=== PATIENT | male | born 1940 | race Hispanic/Latino ===

== ENCOUNTER 2017-05-19 03:35 | Emergency (ER) | payer MEDICARE, BC ==
[2017-05-19 03:35] VITALS: PULSE 72; BMI 25.7
[2017-05-19 03:46] VITALS: BP 116/64; PULSE 60; RESP 18; TEMP 97.7; O2SAT 99
[2017-05-19] MEDS ORDERED: Amoxicillin-Clav 875-125 mg Tab PO STA (03:58)
--- NOTE | 2017-05-19 04:06 | ED PDOC ---
Arrival/HPI - General Chief Complaint: Male Genitourinary Time Seen by Provider: 05/19/17 03:43 Historian: Patient (2-3 days) - History of Present Illness Narrative History of Present Illness (Text): 05/19/17 04:03 75 year old male, whose past medical history includes hypertension, colostomy, enlarged prostate, diabetes, open heart surgery and atrial fibrillation, presents to the emergency department complaining of cloudy urine and reoccurring UTI symptoms. Patient states he had a UTI 3 weeks ago and was on Augmentin for 10 days, but once stopped, patient noticed the symptoms again and called Dr. Gertrudis Guerra who refilled his prescription of Augmentin. On the last 2-3 days, patient began seeing symptoms again and decided to come in to the emergency department for evaluation. Patient reports drinking soda today that irritated him. Patient denies any fever, chills, chest pain, shortness of breath, nausea, vomiting, diarrhea, urinary symptoms, back pain, neck pain, headache, dizziness, or any other complaints. PMD: Dr. Gertrudis Guerra. Symptom Onset: Gradual Symptom Course: Unchanged Activities at Onset: Light Context: Home Past Medical History - Provider Review Nursing Documentation Reviewed: Yes - Cardiac Hx Pacemaker: No - Pulmonary Hx Asthma: Yes - Neurological Hx Neurological Disorder: No - HEENT Hx HEENT Disorder: (detached retina had sx) Hx Cataracts: Yes (b/l sx) - Renal Hx Renal Disorder: No - Endocrine/Metabolic Hx Endocrine Disorders: No Hx Diabetes Mellitus Type 1: Yes - Hematological/Oncological Hx Blood Transfusions: Yes (HUMAN PLTS 2008- 3 UNITS PRBC 02/08) Hx Blood Transfusion Reaction: Yes (TO HUMAN PLTS - ANAPHYLAXIS) - Integumentary Hx Dermatological Disorder: No Other/Comment: generalized multiple skin discolorations face,back, chest, legs , arms, multiple skin cancer removal sites arms, thighs, legs, moles removed from below b/l ears, some basal cell some squamous cell pt not sure which pt sees silk printer dr varner for all skin issues - Musculoskeletal/Rheumatological Hx Musculoskeletal Disorders: No - Gastrointestinal Hx Gastrointestinal Disorders: No - Genitourinary/Gynecological Hx Genitourinary Disorders: No Hx Prostate Problems: Yes (enlarged) - Psychiatric Hx Emotional Abuse: No Hx Physical Abuse: No Hx Substance Use: No - Surgical History Hx Open Heart Surgery: Yes (7 years ago) Other/Comment: right side of neck/skin cancer - Anesthesia Hx Anesthesia Reactions: No - Suicidal Assessment Feels Threatened In Home Enviroment: No Family/Social History - Physician Review Nursing Documentation Reviewed: Yes Family/Social History: No Known Family HX Smoking Status: Never Smoked Hx Alcohol Use: Yes (OCCASIONAL WINE) Hx Substance Use: No Allergies/Home Meds Allergies/Adverse Reactions: Allergies HUMAN PLATELETS Adverse Reaction (Severe, Uncoded 03/01/16 09:25) ANAPHYLAXIS Home Medications: Home Meds Medication Instructions Recorded Confirmed Amlodipine Besylate [Norvasc] 10 mg PO QAM 12/27/15 05/19/17 Digoxin [Lanoxin] 0.125 mg PO F 12/27/15 05/19/17 Dutasteride [Avodart] 0.5 mg PO QAM 12/27/15 05/19/17 Enalapril Maleate [Vasotec] 20 mg PO BID 12/27/15 05/19/17 Ezetimibe [Zetia] 10 mg PO QAM 12/27/15 05/19/17 Insulin Aspart, Recombinant 100 unit SQ ACBD 12/27/15 05/19/17 [Novolog] Insulin Detemir [Levemir] 10 unit SC [facility] 12/27/15 05/19/17 [id number] Ethyl Esters 1 GM 4 gm PO QAM 12/27/15 05/19/17 [Lovaza] Rosuvastatin Calcium [Crestor] 10 mg PO QPM 12/27/15 05/19/17 Tamsulosin [Flomax] 0.4 mg PO BID 12/27/15 05/19/17 Valsartan/Hydrochlorothiazide 1 each PO QAM 12/27/15 05/19/17 [Valsartan-Hctz 320-25 mg Tab] Warfarin [Coumadin] 4 mg PO DAILY 12/27/15 05/19/17 hydrALAZINE [Apresoline] 50 mg PO BID 12/27/15 05/19/17 Metoprolol Tartrate [Lopressor] 25 mg PO QAM 03/01/16 05/19/17 Omeprazole [Prilosec] 40 mg PO DAILY 03/02/16 05/19/17 Review of Systems - Review of Systems Constitutional: absent: Fevers, Other (Chills) Respiratory: absent: SOB Cardiovascular: absent: Chest Pain Gastrointestinal: absent: Abdominal Pain Genitourinary Male: Urinary Output Changes (Urine cloudy ), Other (Cloudy urine) . absent: Dysuria, Frequency, Hematuria Musculoskeletal: absent: Back Pain, Neck Pain Neurological: absent: Headache, Dizziness Physical Exam Vital Signs Temp Pulse Resp BP Pulse Ox 05/19/17 03:42 97.7 F 60 18 116/64 99 Temperature: Afebrile Blood Pressure: Normal Pulse: Regular Respiratory Rate: Normal Appearance: Positive for: Well-Appearing, Non-Toxic, Comfortable Pain Distress: None Mental Status: Positive for: Alert and Oriented X 3 - Systems Exam Head: Present: Atraumatic, Normocephalic Pupils: Present: PERRL Extroacular Muscles: Present: EOMI Conjunctiva: Present: Normal Mouth: Present: Moist Mucous Membranes Neck: Present: Normal Range of Motion Respiratory/Chest: Present: Clear to Auscultation, Good Air Exchange. No: Respiratory Distress, Accessory Muscle Use Cardiovascular: Present: Regular Rate and Rhythm, Normal S1, S2. No: Murmurs Abdomen: Present: Normal Bowel Sounds, Other (colostomy bag). No: Tenderness, Distention, Peritoneal Signs Back: Present: Normal Inspection Upper Extremity: Present: Normal Inspection. No: Cyanosis, Edema Lower Extremity: Present: Normal Inspection. No: Edema Neurological: Present: GCS=15, CN II-XII Intact, Speech Normal Skin: Present: Warm, Dry, Normal Color. No: Rashes Psychiatric: Present: Alert, Oriented x 3, Normal Insight, Normal Concentration Medical Decision Making ED Course and Treatment: 05/19/17 04:03 Impression: 76 year old male presents complaining of cloudy urine and reoccurring UTI symptoms. Plan: -- Augmentin -- Urine Culture -- Urinalysis -- Urinalysis with Micro stat -- Reassess and disposition Progress Notes: - Lab Interpretations Lab Results: Lab Results 05/19/17 04:00: Urine Color Yellow, Urine Appearance Turbid, Urine pH 6.0, Ur Specific [place] 1.025, Urine Protein 100 H, Urine Glucose (UA) Negative, Urine Ketones Negative, Urine Blood Moderate H, Urine Nitrate Negative, Urine Bilirubin Negative, Urine Urobilinogen 0.2, Ur Leukocyte Esterase Large H, Urine RBC 2 - 5, Urine WBC Tntc, Ur Epithelial Cells 0 - 2, Urine Bacteria Many I have reviewed the lab results: Yes - Medication Orders Current Medication Orders: Discontinued Medications Amoxicillin/Clavulanate Potassium (Augmentin 875 Mg-125 Mg Tab) 1 tab PO STAT STA PRN Reason: Protocol Stop: 05/19/17 03:59 Last Admin: 05/19/17 04:07 Dose: 1 tab - Scribe Statement The provider has reviewed the documentation as recorded by the Leliaibe Amada Thompson All medical record entries made by the Leliaibe were at my direction and personally dictated by me. I have reviewed the chart and agree that the record accurately reflects my personal performance of the history, physical exam, medical decision making, and the department course for this patient. I have also personally directed, reviewed, and agree with the discharge instructions and disposition. Disposition/Present on Arrival - Present on Arrival Any Indicators Present on Arrival: No History of DVT/PE: No History of Uncontrolled Diabetes: No Urinary Catheter: No History of Decub. Ulcer: No History Surgical Site Infection Following: None - Disposition Have Diagnosis and Disposition been Completed?: Yes Diagnosis: UTI (urinary tract infection) Disposition: HOME/ ROUTINE Disposition Time: 03:55 Condition: GOOD Discharge Instructions (ExitCare): Urinary Tract Infection in Men (ED) Additional Instructions: Thank you for letting us take care of you today. Your provider was Dr. Corey. You were treated for a UTI. The emergency medical care you received today was directed at your acute symptoms. If you were prescribed any medication , please fill it and take as directed. It may take several days for your symptoms to resolve. Return to the Emergency Department if your symptoms worsen , do not improve, or if you have any other problems. Please contact your doctor or call one of the physicians/clinics you have been referred to that are listed on the Patient Visit Information form that is included in your discharge packet. Bring any paperwork you were given at discharge with you along with any medications you are taking to your follow up visit. Our treatment cannot replace ongoing medical care by a primary care provider (PCP) outside of the emergency department. Thank you for allowing the [facility] team to be part of your care today. You a urine wound culture: It will take several days for the results, if any change in treatment is needed we will contact you. Follow up with Dr. uGerra in 2-3 days for further management and possible change to your antibiotics. Prescriptions: Amoxicillin/Clavulanate [Augmentin 875 MG-125 MG] 1 tab PO BID #14 tab Referrals: Gertrudis Guerra MD [Staff Provider] - Follow up with primary Forms: [employer] (Uzbek)
[2017-05-19 04:19] LABS: URINE BILIRUBIN NEGATIVE (NEGATIVE); URINE BLOOD MODERATE (NEGATIVE); URINE GLUCOSE (UA) NEGATIVE (NEGATIVE); URINE KETONE NEGATIVE (NEGATIVE); URINE LEUKOCYTE ESTERASE LARGE Leu/uL (NEGATIVE); URINE PROTEIN 100 mg/dL (<30 mg/dL); URINE UROBILINOGEN 0.2 E.U./dL (<1 E.U./dL)
[2017-05-19 04:27] LABS: URINE APPEARANCE TURBID (CLEAR); URINE COLOR YELLOW (YELLOW)
[2017-05-19 05:06] LABS: URINE EPITHELIAL CELLS 0 - 2 /hpf (0-5); URINE WBC TNTC /hpf (0-6)
[2017-05-19 05:07] LABS: URINE BACTERIA MANY (NEG)
== END 2017-05-19 04:30 | disposition home or self-care (01) ==
LOC: ED 03:35
DX: N39.0 Urinary tract infection, site not specified (principal); I10 Essential (primary) hypertension

== ENCOUNTER 2017-09-06 03:31 | Emergency (ER) | payer MEDICARE, BC ==
[2017-09-06 03:31] VITALS: PULSE 72; BMI 25.7
[2017-09-06 03:48] VITALS: RESP 18; TEMP 97.4; O2SAT 98
--- NOTE | 2017-09-06 05:03 | ED PDOC ---
Arrival/HPI - General Chief Complaint: Male Genitourinary Time Seen by Provider: 09/06/17 03:33 - History of Present Illness Narrative History of Present Illness (Text): 76 y/o M c PMHx BPH, colon cancer s/p colostomy p/w urinary retention. Patient states that he gets urinary retention from time to time due to UTIs and states this it he same as typical. He denies constipation, vomiting, fever, dyspnea. Past Medical History - Cardiac Hx Hypertension: Yes Hx Pacemaker: No - Pulmonary Hx Asthma: Yes - Neurological Hx Neurological Disorder: No - HEENT Hx HEENT Disorder: (detached retina had sx) Hx Cataracts: Yes (b/l sx) - Renal Hx Renal Disorder: No - Endocrine/Metabolic Hx Endocrine Disorders: No Hx Diabetes Mellitus Type 1: Yes - Hematological/Oncological Hx Blood Transfusions: Yes (HUMAN PLTS 2007- 3 UNITS PRBC 02/08) Hx Blood Transfusion Reaction: Yes (TO HUMAN PLTS - ANAPHYLAXIS) - Integumentary Hx Dermatological Disorder: No Other/Comment: generalized multiple skin discolorations face,back, chest, legs , arms, multiple skin cancer removal sites arms, thighs, legs, moles removed from below b/l ears, some basal cell some squamous cell pt not sure which pt sees plastic manager dr varner for all skin issues - Musculoskeletal/Rheumatological Hx Musculoskeletal Disorders: No - Gastrointestinal Hx Gastrointestinal Disorders: No Hx Colostomy: Yes (cancer) - Genitourinary/Gynecological Hx Genitourinary Disorders: No Hx Prostate Problems: Yes (enlarged) - Psychiatric Hx Psychophysiologic Disorder: No Hx Emotional Abuse: No Hx Physical Abuse: No Hx Substance Use: No - Surgical History Hx Coronary Artery Bypass Graft: Yes (quadruple 2008) Hx Open Heart Surgery: Yes Other/Comment: right side of neck/skin cancer - Anesthesia Hx Anesthesia Reactions: No - Suicidal Assessment Feels Threatened In Home Enviroment: No Family/Social History Family/Social History: No Known Family HX Smoking Status: Never Smoked Hx Alcohol Use: Yes (OCCASIONAL WINE) Frequency of alcohol use: Socially Hx Substance Use: No Allergies/Home Meds Allergies/Adverse Reactions: Allergies HUMAN PLATELETS Allergy (Severe, Uncoded 09/06/17 03:48) ANAPHYLAXIS Home Medications: Home Meds Medication Instructions Recorded Confirmed Amlodipine Besylate [Norvasc] 10 mg PO QAM 12/27/15 09/06/17 Digoxin [Lanoxin] 0.125 mg PO MWF 12/27/15 09/06/17 Dutasteride [Avodart] 0.5 mg PO QAM 12/27/15 09/06/17 Enalapril Maleate [Vasotec] 20 mg PO BID 12/27/15 09/06/17 Ezetimibe [Zetia] 10 mg PO QAM 12/27/15 09/06/17 Insulin Aspart, Recombinant 100 unit SQ ACBD 12/27/15 09/06/17 [Novolog] Insulin Detemir [Levemir] 10 unit SC QAM 12/27/15 09/06/17 [id number] Ethyl Esters 1 GM 1 gm PO QID 12/27/15 09/06/17 [Lovaza] Rosuvastatin Calcium [Crestor] 10 mg PO QPM 12/27/15 09/06/17 Tamsulosin [Flomax] 0.4 mg PO BID 12/27/15 09/06/17 Valsartan/Hydrochlorothiazide 1 each PO QAM 12/27/15 09/06/17 [Valsartan-Hctz 320-25 mg Tab] Warfarin [Coumadin] 4 mg PO DAILY 12/27/15 05/19/17 hydrALAZINE [Apresoline] 50 mg PO BID 12/27/15 09/06/17 Metoprolol Tartrate [Lopressor] 50 mg PO QAM 03/01/16 09/06/17 Omeprazole [Prilosec] 20 mg PO DAILY 03/02/16 09/06/17 Rivaroxaban [Xarelto] 15 mg PO DAILY 09/06/17 09/06/17 Review of Systems - Physician Review All systems were reviewed & negative as marked: Yes - Review of Systems Constitutional: absent: Fevers Respiratory: absent: SOB Physical Exam - Physical Exam Narrative Physical Exam (Text): GEN: NAD Head: NC/AT Eyes: PERRL ENT: MMM Neck: Supple CV: Regular rate Resp: No accessory muscle use Abd: Colostomy, no tenderness, no suprapubic distention. Neuro: Alert, no focal deficit Vital Signs Temp Pulse Resp BP Pulse Ox 09/06/17 03:43 97.4 F L 91 H 18 135/60 98 Medical Decision Making ED Course and Treatment: Straight cathetereized to obtain urine and send for culture and to decompress. Patient requested antibiotics, did not wish to go home with wolfe and states he will f/u with Dr. Guerra expeditiously. 100 cc obtained via straight cath, no residual on bladder scan. Patient states no longer on warfarin. - Lab Interpretations Lab Results: Lab Results 09/06/17 05:15: Urine Color Yellow, Urine Appearance Turbid, Urine pH 6.0, Ur Specific [place] 1.020, Urine Protein >=300 H, Urine Glucose (UA) Negative, Urine Ketones Negative, Urine Blood Large H, Urine Nitrate Negative, Urine Bilirubin Negative, Urine Urobilinogen 0.2, Ur Leukocyte Esterase Large H, Urine RBC Pending, Urine WBC Pending Disposition/Present on Arrival - Present on Arrival Any Indicators Present on Arrival: No History of DVT/PE: No History of Uncontrolled Diabetes: No Urinary Catheter: No History of Decub. Ulcer: No History Surgical Site Infection Following: None - Disposition Have Diagnosis and Disposition been Completed?: Yes Diagnosis: UTI (urinary tract infection) Disposition: HOME/ ROUTINE Disposition Time: 05:30 Patient Plan: Discharge Patient Problems: Current Active Problems Problem Status Onset UTI (urinary tract infection) Acute Condition: STABLE Discharge Instructions (ExitCare): Urinary Tract Infection in Men (ED) Prescriptions: Ciprofloxacin [Cipro] 500 mg PO BID #14 tab Referrals: Sonu Guerra MD [Staff Provider] - Follow up with primary Forms: [employer] (Kyrgyz)
[2017-09-06 05:27] LABS: URINE BILIRUBIN NEGATIVE (NEGATIVE); URINE BLOOD LARGE (NEGATIVE); URINE GLUCOSE (UA) NEGATIVE (NEGATIVE); URINE LEUKOCYTE ESTERASE LARGE Leu/uL (NEGATIVE); URINE NITRATE NEGATIVE (NEGATIVE); URINE PROTEIN >=300 mg/dL (<30 mg/dL); URINE UROBILINOGEN 0.2 E.U./dL (<1 E.U./dL)
[2017-09-06 05:30] LABS: URINE APPEARANCE TURBID (CLEAR); URINE COLOR YELLOW (YELLOW)
[2017-09-06 05:34] LABS: URINE BACTERIA MOD (NEG); URINE EPITHELIAL CELLS 0 - 2 /hpf (0-5); URINE WBC TNTC /hpf (0-6)
[2017-09-06 06:06] VITALS: BP 132/64; PULSE 84
== END 2017-09-06 05:50 | disposition home or self-care (01) ==
LOC: ED 03:31
DX: N39.0 Urinary tract infection, site not specified (principal)

== ENCOUNTER 2017-09-07 05:28 | Emergency (ER) | payer MEDICARE, BC ==
[2017-09-07 05:29] VITALS: PULSE 72; BMI 25.7
--- NOTE | 2017-09-07 05:47 | ED PDOC ---
Arrival/HPI - General Chief Complaint: Male Genitourinary Time Seen by Provider: 09/07/17 05:42 Historian: Patient - History of Present Illness Narrative History of Present Illness (Text): 09/07/17 05:46 Thang Cavazos is a 76 year old male, whose past medical history includes BPH (on Flomax) and colon cancer s/p colostomy, who presents to the Emergency department complaining of urinary retention. Patient states he was seen yesterday morning for similar complaints and had a Soto catheter placed while in ER but did not want to leave with Soto catheter still in place. Patient was treated for a UTI and discharged home with Cipro but denies any relief. Patient returns today because he has been having difficulty voiding his bladder completely since yesterday afternoon. Patient denies any fever, chills, abdominal pain, nausea, vomiting, back pain, neck pain, headache, dizziness, or any other complaints. Urologist: Dr. Guerra Symptom Onset: Gradual Symptom Course: Unchanged Activities at Onset: Light Context: Home Past Medical History - Provider Review Nursing Documentation Reviewed: Yes - Cardiac Hx Cardiac Disorders: Yes Hx Hypertension: Yes Hx Pacemaker: No - Pulmonary Hx Respiratory Disorders: Yes Hx Asthma: Yes - Neurological Hx Neurological Disorder: No - HEENT Hx HEENT Disorder: Yes (detached retina had sx) Hx Cataracts: Yes (b/l sx) - Renal Hx Renal Disorder: No - Endocrine/Metabolic Hx Endocrine Disorders: Yes Hx Diabetes Mellitus Type 1: Yes - Hematological/Oncological Hx Blood Disorders: Yes Hx Blood Transfusions: Yes (HUMAN PLTS 2008- 3 UNITS PRBC 02/08) Hx Blood Transfusion Reaction: Yes (TO HUMAN PLTS - ANAPHYLAXIS) - Integumentary Hx Dermatological Disorder: Yes Other/Comment: generalized multiple skin discolorations face,back, chest, legs , arms, multiple skin cancer removal sites arms, thighs, legs, moles removed from below b/l ears, some basal cell some squamous cell pt not sure which pt sees recreation programmer dr varner for all skin issues - Musculoskeletal/Rheumatological Hx Musculoskeletal Disorders: No - Gastrointestinal Hx Gastrointestinal Disorders: Yes Hx Colostomy: Yes (cancer) - Genitourinary/Gynecological Hx Genitourinary Disorders: Yes Hx Prostate Problems: Yes (enlarged) - Psychiatric Hx Psychophysiologic Disorder: No Hx Emotional Abuse: No Hx Physical Abuse: No Hx Substance Use: No - Surgical History Hx Coronary Artery Bypass Graft: Yes (quadruple 2009) Hx Open Heart Surgery: Yes Other/Comment: right side of neck/skin cancer - Anesthesia Hx Anesthesia Reactions: No - Suicidal Assessment Feels Threatened In Home Enviroment: No Family/Social History - Physician Review Nursing Documentation Reviewed: Yes Family/Social History: Unknown Family HX Smoking Status: Never Smoked Hx Alcohol Use: Yes (OCCASIONAL WINE) Hx Substance Use: No Allergies/Home Meds Allergies/Adverse Reactions: Allergies HUMAN PLATELETS Allergy (Severe, Uncoded 09/06/17 03:48) ANAPHYLAXIS Home Medications: Home Meds Medication Instructions Recorded Confirmed Amlodipine Besylate [Norvasc] 10 mg PO QAM 12/27/15 09/07/17 Digoxin [Lanoxin] 0.125 mg PO [facility] 12/27/15 09/07/17 Dutasteride [Avodart] 0.5 mg PO QAM 12/27/15 09/07/17 Enalapril Maleate [Vasotec] 20 mg PO BID 12/27/15 09/07/17 Ezetimibe [Zetia] 10 mg PO QAM 12/27/15 09/07/17 Insulin Aspart, Recombinant 100 unit SQ [facility] 12/27/15 09/07/17 [Novolog] Insulin Detemir [Levemir] 10 unit SC [facility] 12/27/15 09/07/17 [id number]-6-Ymou Ethyl Esters 1 GM 1 gm PO QID 12/27/15 09/07/17 [Lovaza] Rosuvastatin Calcium [Crestor] 10 mg PO QPM 12/27/15 09/07/17 Tamsulosin [Flomax] 0.4 mg PO BID 12/27/15 09/07/17 Valsartan/Hydrochlorothiazide 1 each PO QAM 12/27/15 09/07/17 [Valsartan-Hctz 320-25 mg Tab] Warfarin [Coumadin] 4 mg PO DAILY 12/27/15 09/07/17 hydrALAZINE [Apresoline] 50 mg PO BID 12/27/15 09/07/17 Metoprolol Tartrate [Lopressor] 50 mg PO QAM 03/01/16 09/07/17 Omeprazole [Prilosec] 20 mg PO DAILY 03/02/16 09/07/17 Rivaroxaban [Xarelto] 15 mg PO DAILY 09/06/17 09/07/17 Review of Systems - Physician Review All systems were reviewed & negative as marked: Yes - Review of Systems Constitutional: Normal. absent: Fevers Eyes: Normal ENT: Normal Respiratory: Normal. absent: SOB, Cough Cardiovascular: Normal. absent: Chest Pain Gastrointestinal: Normal. absent: Abdominal Pain, Diarrhea, Nausea, Vomiting Genitourinary Male: Urinary Output Changes (+urinary retention) Musculoskeletal: Normal. absent: Back Pain, Neck Pain Skin: Normal. absent: Rash Neurological: Normal. absent: Headache, Dizziness Endocrine: Normal Hemo/Lymphatic: Normal Psychiatric: Normal Physical Exam Vital Signs Reviewed: Yes Vital Signs Temp Pulse Resp BP Pulse Ox 09/07/17 05:39 97.5 F L 91 H 16 118/49 L 100 Temperature: Afebrile Blood Pressure: Normal Pulse: Regular Respiratory Rate: Normal Appearance: Positive for: Well-Appearing, Non-Toxic, Comfortable Pain Distress: None Mental Status: Positive for: Alert and Oriented X 3 - Systems Exam Head: Present: Atraumatic, Normocephalic Pupils: Present: PERRL Extroacular Muscles: Present: EOMI Conjunctiva: Present: Normal Mouth: Present: Moist Mucous Membranes Neck: Present: Normal Range of Motion Respiratory/Chest: Present: Clear to Auscultation, Good Air Exchange. No: Respiratory Distress, Accessory Muscle Use Cardiovascular: Present: Regular Rate and Rhythm, Normal S1, S2. No: Murmurs Abdomen: Present: Distention (Suprapubic fullness), Normal Bowel Sounds, Ostomy Tubes (Colostomy bag in place). No: Tenderness, Peritoneal Signs Back: Present: Normal Inspection Upper Extremity: Present: Normal Inspection. No: Cyanosis, Edema Lower Extremity: Present: Normal Inspection. No: Edema Neurological: Present: GCS=15, CN II-XII Intact, Speech Normal Skin: Present: Warm, Dry, Normal Color. No: Rashes Psychiatric: Present: Alert, Oriented x 3, Normal Insight, Normal Concentration Medical Decision Making ED Course and Treatment: 09/07/17 05:47 Impression: 76 year old male complaining of urinary retention since yesterday. Differential Diagnosis included but are not limited to: BPH vs. urinary retention Plan: -- Labs -- UA -- Soto catheter placement -- Reassess and disposition Prior Visits: Notes and results from previous visits were reviewed. On 09/06/2017, pt was seen in the Emergency department for urinary retention. Pt was straight-catheterized while in ER with 100cc of urine output. Pt refused to leave with Soto still in place. Pt was d/c home on Cipro and advised to f/u with urologist. Progress Notes: Soto catheter placed by RN, passed 100cc of urine. 09/07/17 07:[address] Corey, pending labs, re-assessment, and final disposition. - Scribe Statement The provider has reviewed the documentation as recorded by the Gopal Shaffer Provider Scribe Attestation: All medical record entries made by the Scribe were at my direction and personally dictated by me. I have reviewed the chart and agree that the record accurately reflects my personal performance of the history, physical exam, medical decision making, and the department course for this patient. I have also personally directed, reviewed, and agree with the discharge instructions and disposition. Disposition/Present on Arrival - Present on Arrival Any Indicators Present on Arrival: No History of DVT/PE: No History of Uncontrolled Diabetes: No Urinary Catheter: No History of Decub. Ulcer: No History Surgical Site Infection Following: None - Disposition Have Diagnosis and Disposition been Completed?: No Diagnosis: UTI (urinary tract infection), Difficulty in urination Disposition Time: 07:00 Patient Problems: Current Active Problems Problem Status Onset UTI (urinary tract infection) Acute Condition: STABLE Referrals: Krishna Raushc MD [Primary Care Provider] - Follow up with primary Forms: [id number] (Malay)
[2017-09-07 05:48] VITALS: RESP 16
[2017-09-07 07:19] LABS: URINE BILIRUBIN NEGATIVE (NEGATIVE); URINE BLOOD TRACE-INTACT (NEGATIVE); URINE GLUCOSE (UA) NEGATIVE (NEGATIVE); URINE LEUKOCYTE ESTERASE MODERATE Leu/uL (NEGATIVE); URINE NITRATE NEGATIVE (NEGATIVE); URINE PROTEIN >=300 mg/dL (<30 mg/dL); URINE UROBILINOGEN 0.2 E.U./dL (<1 E.U./dL)
[2017-09-07 07:20] VITALS: O2SAT 98
[2017-09-07 07:20] LABS: ALB/GLOB RATIO 1.1 (1.1-1.8); ALBUMIN 3.4 g/dL (3.0-4.8)
[2017-09-07 07:36] LABS: MEAN CELL VOLUME 100.8 fl (80.0-105.0); MEAN CORPUSCULAR HEMOGLOBIN 31.9 pg (25.0-35.0); MEAN CORPUSCULAR HGB CONC 31.6 g/dl (31.0-37.0); MEAN PLATELET VOLUME 10.9 fl (7.0-11.0); RBC 2.48 10^6/uL (3.5-6.1); RED CELL DISTRIBUTION WIDTH 15.4 % (11.5-14.5); WHITE BLOOD COUNT 6.6 10^3/ul (4.5-11.0)
[2017-09-07 07:39] LABS: HEMOGLOBIN 7.9 g/dL (14.0-18.0)
[2017-09-07 07:41] LABS: URINE APPEARANCE CLOUDY (CLEAR); URINE COLOR YELLOW (YELLOW)
[2017-09-07 09:00] LABS: URINE BACTERIA MOD (NEG); URINE EPITHELIAL CELLS 0 - 2 /hpf (0-5); URINE WBC TNTC /hpf (0-6)
[2017-09-07 10:46] VITALS: BP 129/90; PULSE 88; TEMP 97.9
== END 2017-09-07 10:46 | disposition home or self-care (01) ==
LOC: ED 05:28
DX: N39.0 Urinary tract infection, site not specified (principal); R39.198 Other difficulties with micturition